=== PATIENT | female | born 1955 | race Caucasian/White ===

== ENCOUNTER 2023-08-27 10:43 | Outpatient (OUT) | payer SELFPAY | END 2023-08-27 10:44 | disposition home or self-care (01) | LOC: PST 10:44 | PROVIDERS: Visit Provider Ophthalmology | DX: Z01.818 Encounter for other preprocedural examination (principal); H25.812 Combined forms of age-related cataract, left eye ==

== ENCOUNTER 2023-08-30 07:50 | Day surgery (SDC) | payer MEDICARE, SELFPAY ==
--- NOTE | 2023-08-29 | HP_ITS ---
PREOPERATIVE HISTORY AND PHYSICAL Date:? 08/29/2023 HISTORY:? The patient is a 68-year-old white female with complaints of declining vision out of her left eye.? She believes that the onset of this has been gradual over the last two years.? It effects her distance vision, such as road signs and watching television.? It also has affected her night driving because of headlights creating glare and halos.? PAST OCULAR HISTORY:? Denies. PAST MEDICAL HISTORY:? 1.? Diabetes. 2.? Hyperlipidemia. 3.? Hypertension. 4.? Total hysterectomy. 5.? Total hip arthroplasty. 6.? Tubal ligation. SOCIAL HISTORY:? Denies tobacco, alcohol or recreational drug abuse.? SYSTEMIC MEDICATIONS:? Include atorvastatin, lisinopril, hydrochlorothiazide and metformin. REVIEW OF SYSTEMS:? No pertinent positives. PHYSICAL EXAM:? GENERAL:? She is awake, alert and oriented x3, well developed, well nourished, in no acute distress.? HEART:? Regular rate and rhythm. LUNGS:? Clear bilaterally. ABDOMEN:? Soft, non-tender, non-distended. EXTREMITIES:? No pitting edema. OPHTHALMIC EXAM:? Revealed a visual acuity of 20/50 in the right that glared to 20/200 and 20/70 in the left that glared to 20/400.? Pupils motility, muscle balance, confrontational visual zepeda within normal limits bilaterally.? Pressures were measured at 15 bilaterally.? Slit lamp exam revealed blepharitis with a severe decrease in tear film bilaterally.? Conjunctiva, cornea, anterior chamber and iris were within normal limits bilaterally.? Lens status demonstrated a 3+ nuclear sclerosis with vacuoles and 1+ cortical changes.? FUNDUS EXAM:? Revealed a good view with good dilation bilaterally.? Optic discs, vessels and periphery were within normal limits bilaterally.? The maculas demonstrated cystic mottling bilaterally. ASSESSMENT AND PLAN:? Visually significant cataract, left eye.? After risks, benefits, alternatives, as well as expectations were delivered to the patient, she elected to go forward with cataract removal.? She understands the risks include but not limited to infection, bleeding, loss of vision, loss of the eye itself.? Secondly, she understands postoperatively she is likely to require spectacle correction for best visual acuity.? Finally, a complete ophthalmic exam was performed, and there is not determined to be any other source of visual decline other than that of the cataract.? After understanding all the risks as well as expectations, she elected to go forward with procedure as listed above and will be doing so in the near future. VANDANA
--- NOTE | 2023-08-30 | OP_ITS ---
OPERATION DATE: ??08/30/2023 SURGEON:? Tim Brady M.D. PREOPERATIVE DIAGNOSIS:? Nuclear sclerotic cataract left eye. POSTOPERATIVE DIAGNOSIS:? Nuclear sclerotic cataract left eye. PROCEDURE NAME:? Cataract extraction with intraocular lens placement for the left eye. ANESTHESIA:? Topical ESTIMATED BLOOD LOSS:? Zero. COMPLICATIONS:? None. PROCEDURE:? The patient was brought to the Operating Room in supine position.? After proper identification, the left eye was prepped and draped in a sterile ophthalmic fashion.? A paracentesis created at the 5 o'clock position.? Approximately 1 mL of unpreserved Xylocaine was injected into the anterior chamber followed by Amvisc Plus.? Using a 2.6 mm Keratome blade, a clear corneal incision was created at the 3 o'clock limbus.? A cystotome was then used to begin a curvilinear capsulorrhexis that was continued for 360 degrees with the Utrata forceps.? BSS on a 26 gauge cannula was injected beneath the anterior capsule to hydrodissect as well as hydrodelineate the lens.? After ensuring mobility, phacoemulsification was performed in a [id number]-type fashion.? After all nuclear material had been removed from the eye, IA was introduced and all residual cortical material was cleaned up.? Additional Amvisc Plus was injected into the posterior bag and a lens model MX60, 25.5 diopters was injected and dialed into position.? After ensuring centration, IA was reintroduced into the anterior chamber and all residual Amvisc Plus was removed from the eye.? BSS on a 30 gauge cannula was injected into the stroma of both the clear corneal incision as well as paracentesis to hydrate the wounds.? Additional BSS was injected into the anterior chamber to pressurize the eye at approximately 20 to 22 mmHg by finger tension.? 0.1 cc of antibiotic was injected into the anterior chamber.? Weck-Grisel sponges were used to check the wounds to be watertight.? One drop of apraclonidine and one drop of prednisolone acetate placed into the eye and a shield was placed over top. The patient was sent to the postoperative area in satisfactory condition to follow up the following day for postoperative care. VANDANA
[2023-08-30] MEDS: PHENYLEPHRINE HCL 2.5% OP SOL 40 DROP/2 ML BOTTLE OP ×4 (08:04→08:32)
[2023-08-30] MEDS: CYCLOPENTOLATE HCL 1% OP SOL 40 DROP/2 ML BOTTLE OP ×4 (08:04→08:32)
[2023-08-30] MEDS: BESIFLOXACIN HCL 100 DROP DROPS.SUSP OP ×4 (08:05→08:33)
[2023-08-30] MEDS: TROPICAMIDE 1% OP SOL 300 DROP/15 ML BOTTLE OP ×4 (08:05→08:32)
[2023-08-30] MEDS: DIAZEPAM 5 MG TABLET PO (08:06)
[2023-08-30 08:10] VITALS: BP 109/61; PULSE 69; RESP 16; TEMP 36.3; O2SAT 95
[2023-08-30 09:08] VITALS: BP 112/74; PULSE 64; RESP 16; O2SAT 99
[2023-08-30] MEDS: APRACLONIDINE HCL 100 DROP/5 ML BOTTLE OP (09:11)
[2023-08-30] MEDS: PROPARACAINE HCL 0.5% 300 DROP/15 ML BOTTLE OP (09:11)
[2023-08-30] MEDS: HYALURONATE SODIUM 16 MG/ML SYRINGE EYE-LEFT (09:12)
[2023-08-30] MEDS: LIDOCAINE HCL 1% PF 20 MG/2 ML VIAL 1 ML INJ (09:12)
[2023-08-30] MEDS: LIDOCAINE 2% JELLY 10 ML UR (09:12)
[2023-08-30] MEDS: PREDNISOLONE ACETATE OP 1% SUSP 100 DROPS/5 ML 1 DROP OP (09:13)
[2023-08-30] MEDS: BETADINE POVIDONE-IODINE 5% OP SOL 30 ML BOTTLE OP (09:13)
[2023-08-30] MEDS: TETRACAINE HCL 0.5% OP SOL 80 DROP/4 ML BOTTLE OP (09:13)
[2023-08-30] MEDS: CEFUROXIME SODIUM 750 MG, 0.9 % SODIUM CHLORIDE 16.3 ML OP (09:14)
[2023-08-30] MEDS: PHENYLEPHRINE/KETOROLAC 1-0.3% ML VIAL 4 ML IRR (09:14)
[2023-08-30 09:19] VITALS: BP 113/67; PULSE 60; RESP 16; O2SAT 100
== END 2023-08-30 09:32 | disposition home or self-care (01) ==
LOC: SURGOUT 07:51
PROVIDERS: Visit Provider Ophthalmology
PROC: (CPT 66984; principal; 2023-08-30 09:00)
DX: H25.812 Combined forms of age-related cataract, left eye (principal); E11.9 Type 2 diabetes mellitus without complications; E78.5 Hyperlipidemia, unspecified; I10 Essential (primary) hypertension; Z90.710 Acquired absence of both cervix and uterus; Z98.51 Tubal ligation status; Z79.84 Long term (current) use of oral hypoglycemic drugs
CPT/HCPCS: 66984; V2630

== ENCOUNTER 2023-10-04 06:07 | Day surgery (SDC) | payer MEDICARE, SELFPAY ==
--- NOTE | 2023-10-03 | HP_ITS ---
Date: 10/03/2023 HISTORY: The patient is a 68-year-old white female who presents complaining of declining vision out of her right eye. Gradual onset of this has been constant in nature and a duration of approximately two years. She has noticed over that span of time that, while watching TV, she has difficulty seeing the scroller on the bottom of the TV. She also has difficulty at night time while driving, due to the headlights creating glare and halos. She only has a mild improvement with utilization of glasses. PAST OCULAR HISTORY / PAST MEDICAL HISTORY / SOCIAL HISTORY / MEDICATIONS / ALLERGIES TO MEDICATIONS / REVIEW OF SYSTEMS / PHYSICAL EXAMINATION: Unchanged from previously dictated. ASSESSMENT/PLAN: Visually significant cataract, right eye. After the risks, benefits, and alternatives as well as expectations were delivered to the patient, she elected to go forward with cataract removal. She understands the risks include but not limited to infection, bleeding, loss of vision or loss of the eye itself. Secondly, she understands that postoperatively she is likely to require spectacle correction for her best visual acuity. Finally, a complete ophthalmic exam was performed and there was not determined to be any other source of vision decline other than that of cataract. After understanding all risks as well as expectations, she elected to go forward with the procedure as listed above and will be doing so in the near future. VANDANA
--- NOTE | 2023-10-04 | OP_ITS ---
OPERATION DATE: 10/04/2023 SURGEON: Tim Brady M.D. PREOPERATIVE DIAGNOSIS: Nuclear sclerotic cataract right eye. POSTOPERATIVE DIAGNOSIS: Nuclear sclerotic cataract right eye. PROCEDURE NAME: Cataract extraction with intraocular lens placement for the right eye. ANESTHESIA: Topical. ESTIMATED BLOOD LOSS: Zero. COMPLICATIONS: None. PROCEDURE: Patient brought to the operating room in supine position. After proper identification, the right eye was prepped and draped in a sterile ophthalmic fashion. A paracentesis was created at the 11 o'clock position. Approximately 1 mL of unpreserved Xylocaine was injected into the anterior chamber followed by Amvisc Plus. Using a 2.6 mm Keratome blade, a clear corneal incision was created at the 9 o'clock limbus. A cystotome was then used to begin a curvilinear capsulorrhexis that was continued for 360 degrees with the Utrata forceps. BSS on a 26 gauge cannula was injected beneath the anterior capsule to hydrodissect as well as hydrodelineate the lens. After ensuring mobility, phacoemulsification was performed in a [id number]-type fashion. After all nuclear material had been removed from the eye, IA was introduced and all residual cortical material was cleaned up. Additional Amvisc Plus was injected into the posterior bag and a lens model MX60, 25.5 diopters was then injected and dialed into position. After ensuring centration, IA was reintroduced into the anterior chamber and all residual Amvisc Plus was removed from the eye. BSS on a 30 gauge cannula was injected into the stroma of both the clear corneal incision as well as the paracentesis to hydrate the wounds. Additional BSS was injected into the anterior chamber to pressurize the eye at approximately 20 to 22 mmHg by finger tension. 0.1 mL of antibiotic was injected into the anterior chamber. Weck-Grisel sponges were used to check the wounds to be watertight. One drop of Apraclonidine and one drop of prednisolone acetate were placed into the eye and a shield was placed over top. The patient was then sent to the postoperative area in satisfactory condition to follow up the following day for postoperative care. VANDANA
[2023-10-04] MEDS: BESIFLOXACIN HCL 100 DROP DROPS.SUSP OP ×4 (06:30→06:53)
[2023-10-04] MEDS: CYCLOPENTOLATE HCL 1% OP SOL 40 DROP/2 ML BOTTLE OP ×4 (06:31→06:53)
[2023-10-04] MEDS: DIAZEPAM 5 MG TABLET PO (06:31)
[2023-10-04] MEDS: PHENYLEPHRINE HCL 2.5% OP SOL 40 DROP/2 ML BOTTLE OP ×4 (06:31→06:53)
[2023-10-04] MEDS: TROPICAMIDE 1% OP SOL 300 DROP/15 ML BOTTLE OP ×4 (06:32→06:52)
[2023-10-04 07:03] VITALS: BP 135/85; PULSE 67; RESP 16; TEMP 35.7
[2023-10-04 07:39] VITALS: BP 169/90; PULSE 61; RESP 18; O2SAT 100
[2023-10-04] MEDS: APRACLONIDINE HCL 100 DROP/5 ML BOTTLE OP (07:50)
[2023-10-04] MEDS: HYALURONATE SODIUM 16 MG/ML SYRINGE EYE-RIGHT (07:50)
[2023-10-04] MEDS: LIDOCAINE HCL 1% PF 20 MG/2 ML VIAL 1 ML INJ (07:51)
[2023-10-04] MEDS: LIDOCAINE 2% JELLY 10 ML UR (07:51)
[2023-10-04] MEDS: PROPARACAINE HCL 0.5% 300 DROP/15 ML BOTTLE OP (07:52)
[2023-10-04] MEDS: TETRACAINE HCL 0.5% OP SOL 80 DROP/4 ML BOTTLE OP (07:52)
[2023-10-04] MEDS: BETADINE POVIDONE-IODINE 5% OP SOL 30 ML BOTTLE OP (07:52)
[2023-10-04] MEDS: CEFUROXIME SODIUM 750 MG, 0.9 % SODIUM CHLORIDE 16.3 ML OP (07:53)
[2023-10-04] MEDS: PREDNISOLONE ACETATE OP 1% SUSP 100 DROPS/5 ML 1 DROP OP (07:56)
[2023-10-04] MEDS: PHENYLEPHRINE/KETOROLAC 1-0.3% ML VIAL 4 ML IRR (07:57)
[2023-10-04 07:58] VITALS: BP 163/89; PULSE 60; RESP 18; O2SAT 100
== END 2023-10-04 08:08 | disposition home or self-care (01) ==
LOC: SURGOUT 06:09
PROVIDERS: Visit Provider Ophthalmology
PROC: (CPT 66984; principal; 2023-10-04 07:30)
DX: H25.11 Age-related nuclear cataract, right eye (principal)
CPT/HCPCS: 66984; 36430; V2630